=== PATIENT | female | born 1995 | race American Indian/Alaskan Native ===

== ENCOUNTER 2016-04-14 10:56 | Emergency (ER) | payer BC ==
--- NOTE | 2016-04-14 11:14 | Emergency Department Report ---
Chief Complaint: Urogenital-Female Stated Complaint: POSS ETOPIC / Time Seen by Provider: 04/14/16 11:10 - HPI History of Present Illness: Patient was referred to the ED by [facility] for possible ectopic . She denies abdominal cramping, vaginal bleeding or vaginal discharge LMP 03/09/16 - ROS Review of Systems: all other systems are unremarkable except for documentation in HPI - Exam Vital Signs: Vital Signs 04/14/16 11:00 Temperature 98.2 F Pulse Rate 86 Respiratory 20 Rate Blood Pressure 114/62 O2 Sat by Pulse 100 Oximetry Physical Exam: Gen: well developed and nourished, NAD Abd: soft, non-distended, bowel sounds present, non-tender, no guarding, rebound or rigid MSE screening note: Focused history and physical exam performed. Due to findings the following was ordered: laboratory and radiology studies ordered ED Disposition for MSE Condition: Stable
[2016-04-14 11:25] LABS: Basophils % (Auto) 0.4 % (0.0-1.8); Eosinophils % (Auto) 1.2 % (0.0-4.3); Hematocrit 36.4 % (30.3-42.9); Hemoglobin 12.1 gm/dl (10.1-14.3); Mean Corpuscular HGB Conc 33 % (30-34); Mean Corpuscular Hemoglobin 29 pg (28-32); Mean Corpuscular Volume 88 fl (79-97); Platelet Count 267 K/mm3 (140-440); Red Blood Count 4.14 M/mm3 (3.65-5.03); Red Cell Distribution Width 13.1 % (13.2-15.2); White Blood Count 6.3 K/mm3 (4.5-11.0)
[2016-04-14 11:45] LABS: Anion Gap 18 mmol/L; BUN/Creatinine Ratio 12.85; Blood Urea Nitrogen 9 mg/dL (7-17); Calcium 8.9 mg/dL (8.4-10.2); Carbon Dioxide 23 mmol/L (22-30); Chloride 100.6 mmol/L (98-107); Glucose 88 mg/dL (65-100); Potassium 4.3 mmol/L (3.6-5.0); Sodium 137 mmol/L (137-145)
[2016-04-14 12:43] LABS: Bacteria,Urine 1+ /HPF (Negative); Bilirubin,Urine NEG (Negative); Blood,Urine NEG (Negative); Ketones,Urine NEG (Negative); Leukocyte Esterase,Urine LG (Negative); Nitrite,Urine NEG (Negative); Protein,Urine <15 mg/dL mg/dL (Negative); Urobilinogen,Urine < 2.0 mg/dL (<2.0)
--- NOTE | 2016-04-14 13:52 | Ultrasound Report ---
Pelvic and transvaginal sonography: History: Vaginal spotting. Findings: Uterus measures 8.6 x 4.5 x 5 cm. Single cystic structure identified within the endometrium measuring 0.5 x 0.2 x 0.4 cm. No definite echogenic wall is identified. No pole or yolk sac noted within the cystic structure. Right ovary 4.8 x 1.9 x 1.6 cm. Complex cyst of the right ovary measures 2.1 cm. Left ovary 3.4 x 1.8 x 2.9 cm. Complex cyst of the left ovary measures 1.9 cm Impression: Findings as detailed above. Cystic structure within the endometrium may represent early gestational sac. Clinical correlation and followup advised.
[2016-04-14] MEDS ORDERED: ROCEPHIN IM ONE (20:51)
[2016-04-14] MEDS ORDERED: ZITHROMAX PO ONE (20:51)
[2016-04-14] MEDS ORDERED: FLAGYL PO ONE (20:51)
[2016-04-14] MEDS ORDERED: XYLOCAINE 1% MPF 5 mL INFILTRATI ONE (20:51)
[2016-04-14] MEDS ORDERED: TYLENOL PO ONE (20:51)
[2016-04-14] MEDS ORDERED: ZOFRAN ODT PO ONE (20:52)
[2016-04-14 21:37] VITALS: BP 121/54
--- NOTE | 2016-04-15 01:55 | Emergency Department Report ---
HPI - General Chief Complaint: Urogenital-Female Time Seen by Provider: 04/14/16 20:14 - HPI HPI: The patient is a 20-year-old female , of unknown EGA, who presents for evaluation of abdominal pain. The patient reports on and off lower abdominal pain for the past one week, cramping in quality, mild in severity, associated with nausea without emesis, and is exacerbated with retching. The patient denies fever, chills, night sweats, diarrhea, blood in the stool, dark tarry stool, dysuria, hematuria, flank pain, vaginal bleeding, inability to pass flatus. ED Past Medical Hx - Past Medical History Previous Medical History?: No - Surgical History Past Surgical History?: No - Social History Smoking Status: Never Smoker Substance Use Type: Alcohol, Non Opiate Pain - Medications Home Medications: Home Medications Medication Instructions Recorded Confirmed Last Taken Type Acetaminophen [Tylenol] 1,000 mg PO Q6HR #30 tablet 04/14/16 Unknown Rx Ondansetron [Zofran TAB] 4 mg PO Q8HR PRN #15 tablet 04/14/16 Unknown Rx Vit No.130/Iron/FA 1 each PO QDAY #30 tablet 04/14/16 Unknown Rx [ Tablet] ED Review of Systems ROS: Stated complaint: POSS ETOPIC / Other details as noted in HPI Constitutional: denies: fever ENT: denies: throat or neck pain Respiratory: denies: cough, shortness of breath Cardiovascular: denies: chest pain Endocrine: denies unexplained weight loss or gain Gastrointestinal: reports abdominal pain, nausea Genitourinary: denies: dysuria Musculoskeletal: denies: leg swelling Skin: denies: rash Neurological: denies: headache Hematological/Lymphatic: denies: easy bleeding or easy bruising Psych: denies sadness or hopelessness Physical Exam - Physical Exam Vital Signs: Vital Signs 04/14/16 04/14/16 11:00 19:05 Temperature 98.2 F 99.1 F Pulse Rate 86 84 Respiratory 20 20 Rate Blood Pressure 114/62 Blood Pressure 129/79 [Right] O2 Sat by Pulse 100 100 Oximetry Physical Exam: General: well-nourished, well-developed, no acute distress Head: Normocephalic, atraumatic Eyes: normal sclera ENT: Mucous membranes are pink and moist Neck: trachea midline, neck supple, No neck stiffness, no cervical adenopathy Respiratory: Breath sounds equal bilaterally, no wheezing, rales, or rhonchi Cardio: S1 and S2 present, no murmurs, rubs, gallops, capillary refill is brisk Abdomen: Normoactive bowel sounds, soft abdomen, generalized abd tenderness to palpation present, no rigidity, no guarding or rebound tenderness Musc: No pitting edema Skin: No rash Neuro: no facial drooping, normal speech Psych: Normal affect ED Course Vital Signs 04/14/16 04/14/16 11:00 19:05 Temperature 98.2 F 99.1 F Pulse Rate 86 84 Respiratory 20 20 Rate Blood Pressure 114/62 Blood Pressure 129/79 [Right] O2 Sat by Pulse 100 100 Oximetry ED Medical Decision Making - Lab Data Result diagrams: 04/14/16 11:16 04/14/16 11:16 - Medical Decision Making The patient was seen and examined by myself. The patient is placed on a syrup blender and continuous pulse ox. On initial evaluation, the patient was found to be in no distress. Evaluation orders were placed. The patient given a tablet of Tylenol for pain. Lab results reveal elevated beta hCG of 1700, and Rh+ blood type. Ultrasound reveals likely intrauterine gestational sac, although absent for yolk sac or cardiac activity, and therefore is unable to confirm intrauterine . The patient was reevaluated and reported that their symptoms were markedly improved. The patient is stable for discharge with outpatient follow-up. The patient is given follow-up and return instructions. The patient is informed of inability to rule out ectopic . She is instructed to obtain repeat beta hCG in 48 hours. The patient expressed understanding and agreed with the plan. The patient is discharged in stable condition. Critical care attestation.: If time is entered above; I have spent that time in minutes in the direct care of this critically ill patient, excluding procedure time. ED Disposition Clinical Impression: Abdominal pain during in first trimester Disposition: DISCHARGED TO HOME OR SELFCARE Is pt being admited?: No Does the pt Need Aspirin: No Condition: Stable Instructions: Threatened Miscarriage (ED) Additional Instructions: Your ultrasound was unable to identify a normal intrauterine , and also was not able to rule out an ectopic . Make sure to follow-up with your [facility] within the next 48 hours for repeat B-HCG testing and trending. Your beta hCG level should double in 2 days if your is progressing as normal. You could have an ectopic and you must immediately present to an emergency department should you develop worsening of your symptoms or severe pain, vaginal bleeding, lightheadedness, passing out, confusion, or fever. Referrals: PRIMARY CARE, [Primary Care Provider] - 3-5 Days [facility] [Provider Group] - 3-5 Days Time of Disposition: 20:34
== END 2016-04-14 21:38 | disposition home or self-care (01) ==
LOC: ED 10:56
DX: O26.891 Other specified pregnancy related conditions, first trimester (principal); R10.30 Lower abdominal pain, unspecified; R11.0 Nausea; Z3A.00 Weeks of gestation of pregnancy not specified
CPT/HCPCS: 36415; 76801; 76817; 80048; 81001; 84702; 85025; 86900; 86901; 96372; 99284; J0696; Q0162